=== PATIENT | female | born 1975 | race Caucasian/White ===

== ENCOUNTER → 2023-11-26 | Outpatient (CLI) | payer BC, OTHER | END | disposition home or self-care (01) | LOC: RAD 15:33 | PROVIDERS: ATTEND Podiatrist Foot & Ankle Surgery | DX: L03.115 Cellulitis of right lower limb (principal); M79.672 Pain in left foot; M19.071 Primary osteoarthritis, right ankle and foot; M85.871 Other specified disorders of bone density and structure, right ankle and foot; M79.671 Pain in right foot; M25.372 Other instability, left ankle; Z89.441 Acquired absence of right ankle | CPT/HCPCS: 73700 ==